=== PATIENT | male | born 1945 | race Caucasian/White ===

== ENCOUNTER 2020-05-21 11:05 | Emergency (ER) | payer OTHER ==
[2020-05-21 11:34] VITALS: TEMP 97.9; BMI 25.8
[2020-05-21] MEDS ORDERED: CARVEDILOL 12.5 MG TABLET (FP) PO ONE (11:44)
[2020-05-21] MEDS ORDERED: LOSARTAN POTASSIUM 50 MG TABLET PO ONE (11:44)
[2020-05-21] MEDS ORDERED: ACETAMINOPHEN 500 MG TABLET (FP) PO ONE (11:44)
[2020-05-21] MEDS ORDERED: ACETAMINOPHEN 500 MG TABLET (FP) ONE (11:59)
[2020-05-21 12:51] VITALS: BP 166/75; PULSE 59
== END 2020-05-21 13:00 | disposition home or self-care (01) ==
LOC: FER 11:05
DX: I10 Essential (primary) hypertension (principal); R51.9 Headache, unspecified
CPT/HCPCS: 70450-TC; 99284-25

== ENCOUNTER 2021-02-05 19:28 | Emergency (ER) | payer OTHER ==
[2021-02-05 19:40] VITALS: BP 195/90; PULSE 72; TEMP 98.3; BMI 25.9
[2021-02-05 20:41] LABS: HEMATOCRIT 47.3 % (35.4-49); HEMOGLOBIN 16.1 GM/dl (11.7-16.9); MCH 30.3 pg (25.7-33.7); MEAN CELL VOLUME 88.8 fl (80-96); MEAN PLT VOLUME 7.7 fl (7.5-11.1); PLATELET COUNT 230 10^3/uL (134-434); RBC 5.32 M/mm3 (4.00-5.60); RDW 14.2 % (11.9-15.9); WHITE BLOOD COUNT 9.1 K/mm3 (4.0-10.8)
[2021-02-05 20:59] LABS: ALBUMIN 4.2 g/dl (3.4-5.0); ALK PHOS 56 U/L (45-117); ANION GAP 13 MMOL/L (8-16); BILIRUBIN,TOTAL 0.7 mg/dl (0.2-1); CALCIUM 8.9 mg/dl (8.5-10); CHLORIDE 103 mmol/L (98-107); CO2 26 mmol/L (21-32); CREATININE 0.8 mg/dl (0.55-1.3); GLUCOSE,RANDOM 117 mg/dl (74-106); SGOT/AST 24 U/L (15-37); SGPT/ALT 29 U/L (13-61); SODIUM 142 mmol/L (136-145); TOT PROT 6.8 g/dl (6.4-8.2)
[2021-02-05 21:42] LABS: N-TERMINAL BNP 65.4 pg/ml (5-450)
[2021-02-05 22:26] LABS: PLATELET ESTIMATE ADEQUATE
== END 2021-02-05 22:30 | disposition left against medical advice (07) ==
LOC: FER 19:28
DX: R06.02 Shortness of breath (principal); R07.89 Other chest pain
CPT/HCPCS: 36415; 71046-TC-FY; 80053; 83880; 84484; 85025; 93005; 99285-25

== ENCOUNTER 2021-11-18 07:59 | Day surgery (SDC) | payer OTHER ==
[2021-11-11 15:19] VITALS: BMI 24.5
[2021-11-18 09:47] VITALS: BP 128/70; PULSE 67; TEMP 98
== END 2021-11-18 10:15 | disposition home or self-care (01) ==
LOC: FASU-ENDO 07:59
PROVIDERS: ATTEND Internal Medicine Gastroenterology
PROC: 0DJD8ZZ Inspection of Lower Intestinal Tract, Via Natural or Artificial Opening Endoscopic (ICD-10-PCS; principal; 2021-11-18 09:02)
DX: Z12.11 Encounter for screening for malignant neoplasm of colon (principal); Z86.010 Personal history of colon polyps; K57.30 Diverticulosis of large intestine without perforation or abscess without bleeding

== ENCOUNTER 2022-11-02 06:32 | Day surgery (SDC) | payer OTHER ==
[2022-10-26 16:40] VITALS: BMI 24.3
[2022-11-02] MEDS: CYCLOPENTOLATE 2% OPHTH SOLN 2 ML BOTTLE ONE ×3 (07:00→07:10)
[2022-11-02] MEDS: CIPROFLOXACIN 0.3% EYE DROPS 5 ML BOTTLE ONE ×3 (07:00→07:10)
[2022-11-02] MEDS: PHENYLEPHRINE 2.5% OPTHALMIC DROP 2ML BOTTLE ONE ×3 (07:00→07:10)
[2022-11-02] MEDS: TROPICAMIDE 1% OPHTH SOLN 15 ML BOTTLE ONE ×3 (07:00→07:10)
[2022-11-02] MEDS ORDERED: BSS (NA/CA/MG/K) BALANCED SALT SOLUTION OPHTH SOLN 15 ML BOTTLE ONE (07:13)
[2022-11-02] MEDS ORDERED: LIDOCAINE HCL/PF 1% SDV 5ML VIAL ONE (07:13)
[2022-11-02] MEDS ORDERED: CARBACHOL 0.01% INTRA-OCULAR 1.5 ML VIAL ONE (07:13)
[2022-11-02] MEDS ORDERED: TETRACAINE 0.5% OPHTH SOLN 2 ML BOTTLE ONE (07:13)
[2022-11-02] MEDS ORDERED: NEO/POLYMYX B SULF/DEXAMETH OPHTHALMIC 5ML BOTTLE ONE (07:13)
[2022-11-02] MEDS ORDERED: EPINEPHrine/PF 1 MG/1 ML (1:1,000) AMPULE ONE (07:13)
[2022-11-02] MEDS ORDERED: ONDANSETRON 4 MG/2 ML VIAL ONE (07:14)
[2022-11-02] MEDS ORDERED: SUCCINYLCHOLINE CHLORIDE 200 MG/10 ML SYRINGE ONE (07:20)
[2022-11-02] MEDS ORDERED: MIDAZOLAM HCL 2 MG/2 ML SINGLE DOSE VIAL ONE (07:22)
[2022-11-02 08:46] VITALS: PULSE 56; TEMP 97.3
[2022-11-02 08:52] VITALS: BP 132/66; RESP 16
== END 2022-11-02 08:59 | disposition home or self-care (01) ==
LOC: FASU 06:32
PROVIDERS: ATTEND Ophthalmology
PROC: 08RK3JZ Replacement of Left Lens with Synthetic Substitute, Percutaneous Approach (ICD-10-PCS; principal; 2022-11-02 08:13)
DX: H26.8 Other specified cataract (principal)
CPT/HCPCS: 66984; V2632

== ENCOUNTER 2022-11-25 11:54 | Emergency (ER) | payer OTHER ==
[2022-11-25 12:01] VITALS: BP 151/71; PULSE 58; RESP 18; TEMP 99.2; BMI 24.5
[2022-11-25 13:20] LABS: HEMATOCRIT 47.5 % (35.4-49); HEMOGLOBIN 15.8 G/dL (11.7-16.9); MCH 30.4 pg (25.7-33.7); MCHC 33.3 g/dl (32.0-35.9); MEAN CELL VOLUME 91.4 fl (80-96); MEAN PLT VOLUME 8.9 fl (7.5-11.1); PLATELET COUNT 187.6 10^3/uL (134-434); RDW 14.6 % (11.9-15.9); WHITE BLOOD COUNT 6.7 10^3/uL (4.0-10.8)
[2022-11-25 13:25] LABS: ALBUMIN 4.5 g/dl (3.4-5.0); BILIRUBIN,TOTAL 0.7 mg/dl (0.2-1); BLOOD UREA NITROGEN 15.1 mg/dl (7-18); CALCIUM 9.5 mg/dl (8.5-10.1); CREATININE 0.8 mg/dl (0.6-1.3); POTASSIUM 4.2 mmol/L (3.5-5.1); SGOT/AST 20.4 U/L (15-37); SGPT/ALT 23.1 U/L (7-52); TOT PROT 6.5 g/dl (6.4-8.2)
[2022-11-25 13:26] LABS: PLATELET ESTIMATE ADEQUATE
[2022-11-25] MEDS ORDERED: ALBUTEROL SO4 2.5/IPRATROPIUM 0.5 INH SOL 3 ML VIAL.NEB. NEB ONE (13:29)
== END 2022-11-25 14:10 | disposition home or self-care (01) ==
LOC: FER 11:54
PROC: 3E0F7GC Introduction of Other Therapeutic Substance into Respiratory Tract, Via Natural or Artificial Opening (ICD-10-PCS; principal; 2022-11-25)
DX: R05.9 Cough, unspecified (principal); R06.02 Shortness of breath; R07.81 Pleurodynia; J40 Bronchitis, not specified as acute or chronic; Z20.822 Contact with and (suspected) exposure to COVID-19
CPT/HCPCS: 0241U-QW; 36415; 71046-TC-FY; 80053; 84484; 85027; 93005; 99285-25

== ENCOUNTER 2022-11-25 20:21 | Emergency (ER) | payer OTHER ==
[2022-11-25 22:09] VITALS: BP 135/80; PULSE 72; RESP 16; TEMP 98.6; BMI 24.5
== END 2022-11-25 22:11 | disposition home or self-care (01) ==
LOC: FER 20:21
DX: R22.32 Localized swelling, mass and lump, left upper limb (principal); S40.022A Contusion of left upper arm, initial encounter; X58.XXXA Exposure to other specified factors, initial encounter
CPT/HCPCS: 93971; 99284-25